=== PATIENT | male | born 1970 | race Caucasian/White ===

== ENCOUNTER 2023-05-22 13:44 | Outpatient (CLI) | payer OTHER, SELFPAY ==
--- NOTE | ~2023-05-22 | CT_ITS ---
Non-contrast CT scan of the Abdomen and Pelvis Clinical indication: Neutropenia Technique: 2.5 mm axial scans were obtained through the abdomen and pelvis without intravenous or or al contrast. Dose reduction technique was used on this scan by utilizing automated exposure control a nd iterative reconstruction technique. The dose-length product (DLP) was 401.81 mGy-cm. Findings: Images through the lung bases reveal no abnormalities. There is no evidence of renal or ureteral calculi. The kidneys and the ureters are nondilated. The liver, spleen, pancreas, gallbladder, and adrenals appear normal. There is no aortic aneurysm. There is no evidence of bowel obstruction. Images through the pelvis were performed. There is no evidence of ascites or lymphadenopathy. Questio nable urinary bladder wall thickening. No pelvic mass seen. Impression: Questionable cystitis. Correlate clinically. No other significant findings. Reviewed, dictated and finalized at [facility]. Impression: Questionable cystitis. Correlate clinically. No other significant findings.
== END 2023-05-22 13:45 ==
PROVIDERS: PCP Physician Assistant; Visit Provider Physician Assistant
DX: D70.9 Neutropenia, unspecified (principal); K52.89 Other specified noninfective gastroenteritis and colitis
CPT/HCPCS: 74176

== ENCOUNTER 2023-06-27 13:43 | Outpatient (CLI) | payer OTHER, SELFPAY ==
[2023-06-27 13:58] LABS: Basophils Percent Auto 0.9 % (0.2-1.2); Eosinophils Absolute Auto 0.1 K/mm3 (0-0.3); Eosinophils Percent Auto 1.6 % (0-4.4); Hematocrit 43.4 % (42.0-52.0); Immature Granulocyte Absolute 0.01 K/mm3 (0.00-0.031); Immature Granulocyte Percent A 0.3 % (0-0.5); Lymphocytes Absolute Auto 0.92 K/mm3 (0.9-3.2); Lymphocytes Percent Auto 28.8 % (18.3-44.2); Mean Corpuscular HGB Conc 34.6 g/dl (32-36); Mean Corpuscular Hemoglobin 31.4 pg (26-34); Mean Platelet Volume 9.2 fl (7.4-10.4); Monocytes Absolute Auto 0.3 K/mm3 (0.1-0.6); Monocytes Percent Auto 8.1 % (2.6-8.5); Neutrophils Absolute Auto 1.9 K/mm3 (1.3-6.7); Neutrophils Percent Auto 60.3 % (45.5-73.1); Platelet Count Result 177 k/mm3 (150-375); Red Blood Count 4.77 M/mm3 (4.6-6.20); Red Cell Distribution Width 12.7 % (11.5-14.5); White Blood Count 3.2 K/mm3 (4.5-10.0)
[2023-06-27 16:54] LABS: Iron 120 ug/dL (49-181)
[2023-06-27 17:03] LABS: Alanine Aminotransferase 47 U/L (6-50); Albumin Level 4.6 g/dL (3.5-5.1); Alkaline Phosphatase 46 U/L (38-126); Anion Gap 6 mmol/L (4-12); Aspartate Amino Transferase 43 U/L (17-59); Bilirubin,Total 0.8 mg/dL (0.2-1.3); Blood Urea Nitrogen 18 mg/dL (9-20); Calcium 9.6 mg/dL (8.4-10.2); Carbon Dioxide 28 mmol/L (22-30); Chloride 106 mmol/L (98-107); Estimated Glomerular Filt Rate 49; Glucose 106 mg/dL (65-110); Lactate Dehydrogenase 161 U/L (120-246); Potassium 4.3 mmol/L (3.4-5.0); Sodium 140 mmol/L (137-145)
[2023-06-27 17:05] LABS: Percent Iron Saturation 40 % (20-50)
[2023-06-27 18:13] LABS: Folic Acid 8.8 ng/mL (2.76->20)
[2023-07-01 03:28] LABS: Methylmalonic Acid 104 nmol/L (87-318)
== END 2023-06-27 13:44 | disposition home or self-care (01) ==
LOC: ANHLAB 13:45
PROVIDERS: PCP Physician Assistant; Visit Provider Internal Medicine Hematology & Oncology
DX: D72.819 Decreased white blood cell count, unspecified (principal); D64.9 Anemia, unspecified
CPT/HCPCS: 36415; 80053; 82607; 82728; 82746; 83540; 83550; 83615; 83921; 85025; 86038

== ENCOUNTER 2023-10-19 14:06 | Outpatient (CLI) | payer OTHER, SELFPAY ==
[2023-10-19 14:28] LABS: Eosinophils Absolute Auto 0.1 K/mm3 (0-0.3); Eosinophils Percent Auto 1.5 % (0-4.4); Hematocrit 45.2 % (42.0-52.0); Hemoglobin 15.6 g/dL (14.0-18.0); Immature Granulocyte Absolute 0.01 K/mm3 (0.00-0.031); Immature Granulocyte Percent A 0.2 % (0-0.5); Lymphocytes Absolute Auto 1.28 K/mm3 (0.9-3.2); Lymphocytes Percent Auto 31.9 % (18.3-44.2); Mean Corpuscular HGB Conc 34.5 g/dl (32-36); Mean Corpuscular Hemoglobin 31.1 pg (26-34); Mean Platelet Volume 9.6 fl (7.4-10.4); Monocytes Absolute Auto 0.4 K/mm3 (0.1-0.6); Neutrophils Absolute Auto 2.3 K/mm3 (1.3-6.7); Neutrophils Percent Auto 56.4 % (45.5-73.1); Platelet Count Result 188 k/mm3 (150-375); Red Blood Count 5.02 M/mm3 (4.6-6.20); Red Cell Distribution Width 13.4 % (11.5-14.5)
[2023-10-19 17:21] LABS: Albumin Level 4.3 g/dL (3.5-5.1); Anion Gap 12 mmol/L (4-12); Blood Urea Nitrogen 19 mg/dL (9-20); Carbon Dioxide 26 mmol/L (22-30); Chloride 98 mmol/L (98-107); Estimated Glomerular Filt Rate 53; Glucose 98 mg/dL (65-110); Phosphorus 3.6 mg/dL (2.5-4.5); Potassium 3.8 mmol/L (3.4-5.0); Sodium 136 mmol/L (137-145)
[2023-10-19 18:33] LABS: Folic Acid 8.5 ng/mL (2.76->20)
== END 2023-10-19 14:07 | disposition home or self-care (01) ==
LOC: ANHLAB 14:07
PROVIDERS: Internal Medicine Nephrology; PCP Family Medicine; Visit Provider Internal Medicine Hematology & Oncology
DX: N18.31 Chronic kidney disease, stage 3a (principal)
CPT/HCPCS: 36415; 80069; 82607; 82746; 85025

== ENCOUNTER 2024-01-09 13:21 | Outpatient (CLI) | payer OTHER, SELFPAY ==
[2024-01-09 14:20] LABS: Albumin Level 4.3 g/dL (3.5-5.1); Anion Gap 9 mmol/L (4-12); Blood Urea Nitrogen 17 mg/dL (9-20); Calcium 9.2 mg/dL (8.4-10.2); Carbon Dioxide 27 mmol/L (22-30); Chloride 102 mmol/L (98-107); Estimated Glomerular Filt Rate > 60; Glucose 100 mg/dL (65-110); Phosphorus 4.2 mg/dL (2.5-4.5); Potassium 3.6 mmol/L (3.4-5.0); Sodium 138 mmol/L (137-145)
[2024-01-09 14:27] LABS: Complement C3 97 mg/dL (88-165)
[2024-01-09 14:30] LABS: Parathyroid Intact 32.9 pg/mL (14.5-75.2)
[2024-01-09 14:47] LABS: Creatinine Urine 82.7 mg/dL
[2024-01-09 14:52] LABS: Total Protein Urine Random < 5 mg/dL; Ur Ttl Prot Creatinine Ratio < 0.06 mg/mg (0-0.20)
[2024-01-10 11:09] LABS: Protein, Total 6.4 g/dL (6.1-8.1)
[2024-01-11 08:54] LABS: Creatinine, Random Urine 82 mg/dL (20-320); Total Prot/Creat ratio mg/mg 0.061 (0.025-0.148); Total Protein/Creatinine Ratio 61 mg/g creat (25-148)
[2024-01-12 15:03] LABS: Anti Glomerular Basement Memb <1.0 AI
[2024-01-13 11:03] LABS: ANCA Screen NEGATIVE (NEGATIVE)
[2024-01-15 16:08] LABS: Albumin 4.2 g/dL (3.8-4.8); Alpha 1 Globulin 0.2 g/dL (0.2-0.3); Alpha 2 Globulin 0.5 g/dL (0.5-0.9); Beta 1 Globulin 0.4 g/dL (0.4-0.6); Gamma Globulin 0.8 g/dL (0.8-1.7)
== END 2024-01-09 13:22 | disposition home or self-care (01) ==
LOC: ANHLAB 13:22
PROVIDERS: PCP Family Medicine; Visit Provider Internal Medicine Nephrology
DX: N18.31 Chronic kidney disease, stage 3a (principal); E55.9 Vitamin D deficiency, unspecified; N25.81 Secondary hyperparathyroidism of renal origin
CPT/HCPCS: 36415; 80069; 82570; 83520; 83970; 84155; 84156; 84165; 84166; 86036; 86038; 86039; 86160; 86225

== ENCOUNTER 2024-04-23 12:15 | Outpatient (CLI) | payer OTHER, SELFPAY ==
--- OUTSIDE RECORDS SUMMARY | 2024-04-23 12:20 | XMS_ITS | Clinical Summary ---
Author Organization [facility] Address [address] [place] [phone] Care Team Providers Care Surveillance Manager Name Role Phone Tr Wallis MD Primary Care Provider [phone] Allergies No known active allergies Medications ibuprofen (ADVIL,MOTRIN) 200 mg tab/cap Take by mouth as needed for pain Active meloxicam (MOBIC) 15 mg tablet Take 1 tablet (15 mg total) by mouth daily with breakfast Take 1 daily with food 30 tablet 3 Active cyclobenzaprine (FLEXERIL) 10 mg tablet Take 1 tablet (10 mg total) by mouth 2 (two) times a day as needed for muscle spasms 20 tablet 3 Active Active Problems Problem Noted Date Diagnosed Date Neutropenia 10/11/2021 Neck pain of over 3 months duration 08/16/2021 Arthralgia of elbow 03/18/2010 Surgical History Surgery Date Site/Laterality Comments ARM SURGERY LASIK TONSILECTOMY, ADENOIDECTOMY, BILATERAL MYRINGOTOMY AND TUBES WISDOM TOOTH EXTRACTION Family History Medical History Relation Name Comments Cancer Maternal Grandfather Heart disease Maternal Grandmother Relation Name Status Comments Maternal Grandfather Maternal Grandmother Social History Tobacco Use Types Packs/Day Years Used Date Smoking Tobacco: Never Smokeless Tobacco: Never Tobacco Cessation:Counseling Given: Not Answered Alcohol Use Standard Drinks/Week Comments Yes 0 (1 standard drink = 0.6 oz pur e alcohol) social Personal Safety Answer Date Recorded Getting School Help Needed Not on file 05/19 Sex and Gender Information Value Date Recorded Sex Assigned at Not on file 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 Gender Identity Not on file Sexual Orientation Not on file Obstetrics History Last Filed Vital Signs Vital Sign Reading Time Taken Comments Blood Pressure 131/86 04/04/2022 5:56 PM DIESEL TRUCK MECHANIC Pulse 65 04/04/2022 5:56 PM DIESEL TRUCK MECHANIC Temperature 36.6 C (97.8 F) 04/04/2022 3:23 PM DIESEL TRUCK MECHANIC Respiratory Rate 18 04/04/2022 5:56 PM DIESEL TRUCK MECHANIC Oxygen Saturation 99% 04/04/2022 5:56 PM DIESEL TRUCK MECHANIC Inhaled Oxygen Concentration - - Weight 82.2 kg (181 lb 3.5 oz) 04/04/2022 3:23 P M DIESEL TRUCK MECHANIC Height 177.8 cm (5' 10 ) 04/04/2022 3:23 PM DIESEL TRUCK MECHANIC Body Mass Index 26 04/04/2022 3:23 PM DIESEL TRUCK MECHANIC Plan of Treatment Health Maintenance Due Date Last Done Comments Colon Cancer Screening-Colonoscopy 1972 Depression Screening 1972 Hepatitis C Screening 1972 Prostate Cancer Screening-PSA 1972 DTaP/Tdap/Td Vaccine (1 - Tdap) 05/09/1983 Hepatitis B Screening 1990 Regular Well Visit/Exam 18-64 1990 Zoster Vaccine (1 of 2) 2022 Influenza Vaccine (#1) 2023 Pneumococcal vaccine <65 Aged Out No longer eligible based on patient's age to complete this topic Insurance [place] [address] [facility] OTHER [facility] * Guarantor: ROBE[employer]MRA Account Type Relation to Patient Date of Phone Billing Address Personal/Family Unverified Proxy [address] [place] [phone] [facility] CHO[facility] PLUS [employer] COMPENSATION GENERIC Care Teams Surveillance Manager Relationship Specialty Start Date End Date Tr Wallis MD [address] [place] [id number] PCP - General Family Medicine 02/05/19
--- OUTSIDE RECORDS SUMMARY | 2024-04-23 12:20 | XMS_ITS | Referral Summary ---
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 Gender Identity Not on file Sexual Orientation Not on file Last Filed Vital Signs Vital Sign Reading Time Taken Comments Blood Pressure 131/86 04/04/2022 5:56 PM FOOT ROENTGENOLOGIST Pulse 65 04/04/2022 5:56 PM FOOT ROENTGENOLOGIST Temperature 36.6 C (97.8 F) 04/04/2022 3:23 PM FOOT ROENTGENOLOGIST Respiratory Rate 18 04/04/2022 5:56 PM FOOT ROENTGENOLOGIST Oxygen Saturation 99% 04/04/2022 5:56 PM FOOT ROENTGENOLOGIST Inhaled Oxygen Concentration - - Weight 82.2 kg (181 lb 3.5 oz) 04/04/2022 3:23 P M FOOT ROENTGENOLOGIST Height 177.8 cm (5' 10 ) 04/04/2022 3:23 PM FOOT ROENTGENOLOGIST Body Mass Index 26 04/04/2022 3:23 PM FOOT ROENTGENOLOGIST Plan of Treatment Not on file Insurance [facility] CHO[facility] PLUS [facility] OTHER [facility] PLUS [facility] * Guarantor: ROBE NAGEL Account Type Relation to Patient Date of Phone Billing Address Personal/Family Unverified Proxy [address] [place] [phone] [facility] CHOICE PLUS MRA [facility] CHOICE PLUS WORK[employer] COMPENSATION GENERIC Care Teams Semiconductor Testing Group Leader Relationship Specialty Start Date End Date Tr Wallis MD [address] [place] [id number] PCP - General Family Medicine 02/05/19
--- OUTSIDE RECORDS SUMMARY | 2024-04-23 12:20 | XMS_ITS | Clinical Summary ---
Author Organization [facility] Address [address] [place] [address] Care Team Providers Care Roadway Designer Name Role Phone Joseph Hernandez MD Primary Care Prov ider Allergies No known active allergies Encounters Date Type Department Care Team Description 04/18/2024 3:53 PM COMPENSATION INTERN - 04/18/2024 11:59 PM [facility] Hospital Encounter [facility] [address] [place] [address] Yohannes Meraz MD Discharge Disposition: Home or Self Care (Routine Discharge) 04/18/2024 Travel from Last 3 Months Family History Medical History Relation Comments Cancer Maternal Grandfather Lung cancer Stroke Maternal Grandmother Stroke Cancer Maternal Uncle Pancreatic cance r Cancer Mother Colon Cancer in remission Cancer Paternal Grandfather Cancer Relation Status Comments Maternal Grandfather Maternal Grandmother Maternal Uncle Mother Paternal Grandfather Social History Tobacco Use Types Packs/Day Years Used Date Smoking Tobacco: Never Passive Smoke Exposure: Never Smokeless Tobacco: Never Tobacco Cessation:Counseling Given: No Alcohol Use Standard Drinks/Week Comments Yes 23.3 (1 standard drink = 0.6 oz pure alcohol) PHQ-2 Answer Date Recorded Patient Health Questionnaire-2 Score 0 11/08/2023 Sex and Gender Information Value Date Recorded Sex Assigned at Not on file Legal Sex Male 8:25 PM CDT Gender Identity Not on file Sexual Orientation Not on file Travel History Travel Start Travel End [place] 04/18/2024 04/18/2024 [place] 04/13/2024 04/15/2024 [place] 03/29/2024 03/31/2024 Last Filed Vital Signs Vital Sign Reading Time Taken Comments Blood Pressure 122/70 11/08/2023 8:19 AM CDT Pulse 61 11/08/2023 8:19 AM CDT Temperature 36.6 C (97.8 F) 11/08/2023 8:19 AM CDT Respiratory Rate 18 11/08/2023 8:19 AM CDT Oxygen Saturation 96% 11/08/2023 8:19 AM CDT Inhaled Oxygen Concentration - - Weight 82.9 kg (182 lb 12.8 oz) 11/08/2023 8:19 AM CDT Height 177.8 cm (5' 10 ) 11/08/2023 8:19 AM CDT Body Mass Index 26.23 11/08/2023 8:19 AM CDT Plan of Treatment Health Maintenance Due Date Last Done Comments Hepatitis C 1990 DTaP, Tdap and Td Vaccines ( 1 - Tdap) 05/09/1991 Hepatitis B Vaccines (1 of 3 - 19+ 3-dose series) 05/09/1991 Zoster Vaccines (1 of 2) 2022 COVID-19 Vaccine (1 - 2023-2 5 season) 2023 Influenza Adult (#1) 2023 PHQ-2 (Physician [place]) 03/06/2024 11/08/2023 Annual Physical 11/07/2024 11/08/2023 Colorectal Cancer Screening Colonoscopy (10 Years) 03/13/2033 03/13/2023, 02/21/2022, 02/21/2022 Meningococcal B Vaccine Aged Out No l onger eligible based on patient's age to complete this topic Meningococcal Vaccine Aged Out No nicola carlene eligible based on patient's age to complete this topic Pneumococcal Vaccine: Pediatrics (0 to 5 Years) and At-Risk Patients (6 to 64 Years) Aged Out No longer eligible b ased on patient's age to complete this topic RSV Immunizations Under 20 Months Aged Out No longer eligible b ased on patient's age to complete this topic Procedures Procedure Name Priority Date/Time Associated Diagnosis Comments CT ABD+PEL WO CON Routine 04/18/2024 4:0 3 PM COMPENSATION INTERN Chronic prostatitis COLONOSCOPY GENERIC (SCAN ORDER) 03/13/2023 from Last 3 Months or Most Recently Relevant to Health Maintenance Results * CT ABD+PEL WO CON (04/18/2024 4:03 PM COMPENSATION INTERN) Anatomical Region Laterality Modality Abdomen Computed Tomogra phy 04/22/2024 8:48 PM COMPENSATION INTERN Impressions 04/22/2024 8:56 PM COMPENSATION INTERN IMPRESSION: 1. Mild prostatomegaly. Complete evaluation of the prostate is limited on this noncontrast CT. 2. No lymphadenopathy is seen within the abdomen or pelvis. 3. Moderate fecal burden is seen within the colon, which can be seen with constipation. 4. There is a 4.5 mm right lower lobe pulmonary nodule. If there is clinical concern for primary lung cancer, a follow-up CT in 12 months is recommended for further evaluation. Otherwise, no imaging follow-up is needed. Ordered By: YOHANNES MERAZ Interpreted By: Fartun Latif MD, 04/22/2024 8:48 PM Narrative 04/22/2024 8:56 [place] [id number] PROCEDURE: CT ABD+PEL WO CON HISTORY: Chronic prostatitis. Left lower quadrant pain. TECHNIQUE: Helical CT of the abdomen and pelvis was performed without intravenous contrast. A dose lowering technique was used for this procedure, which may include, but is not limited to, dose reduction technique, automated exposure control, the use of iterative reconstruction, and ALARA (As Low As Reasonably Achievable) / Image Gently techniques. COMPARISON: None. FINDINGS CT ABDOMEN/PELVIS: Lower thorax: There is a 4.5 mm right lower lobe pulmonary nodule. There is a calcified granuloma within the right lower lobe. Minimal bilateral dependent atelectasis. The heart is normal in size. The distal esophagus is unremarkable. Liver: The liver is normal in size. No intrahepatic mass is seen on this non- contrast exam. Biliary tree: The gallbladder is present. There is no biliary ductal dilatation. Spleen: The spleen is normal in size. Calcifications are seen in the spleen, consistent with old granulomatous disease. Pancreas: The pancreas is normal in size. There are no pancreatic calcifications. The pancreatic duct is not dilated. Adrenal glands: Unremarkable. Kidneys: There is no hydronephrosis. No renal stones are seen. No ureteric stones identified. Lymph nodes: Abdomen: There is no abdominal adenopathy. Pelvis: There is no pelvic adenopathy. Vasculature: The aorta is normal caliber. Peritoneum/mesentery/omentum: There is no free fluid or free air. GI tract: There is no bowel obstruction. The appendix normal. Moderate fecal burden within the colon. There is no abnormal bowel wall thickening to suggest acute inflammation. Pelvic urogenital structures:The bladder is grossly unremarkable. Mild enlarged measuring up to 5.0 cm in the transverse dimension. Body wall: There are degenerative changes in the spine. No aggressive osseous lesions identified. Limitations: Evaluation of the solid parenchymal organs and vasculature is limited due to lack of intravenous contrast. Conroy: (S/I) = series number / image number Procedure Note Fartun Latif MD - 04/22/[address] [address] PROCEDURE: CT ABD+PEL WO CON HISTORY: Chronic prostatitis. Left lower quadrant pain. TECHNIQUE: Helical CT of the abdomen and pelvis was performed withoutintravenous contrast. A dose lowering technique was used for this procedure, which may include,but is not limited to, dose reduction technique, automated exposurecontrol, the use of iterative reconstruction, and ALARA (As Low AsReasonably Achievable) / Image Gently techniques. COMPARISON: None. FINDINGS CT ABDOMEN/PELVIS: Lower thorax: There is a 4.5 mm right lower lobe pulmonary nodule. Thereis a calcified granuloma within the right lower lobe. Minimal bilateraldependent atelectasis. The heart is normal in size. The distal esophagusis unremarkable. Liver: The liver is normal in size. No intrahepatic mass is seen on thisnon- contrast exam. Biliary tree: The gallbladder is present. There is no biliary ductaldilatation. Spleen: The spleen is normal in size. Calcifications are seen in thespleen, consistent with old granulomatous disease. Pancreas: The pancreas is normal in size. There are no pancreaticcalcifications. The pancreatic duct is not dilated. Adrenal glands: Unremarkable. Kidneys: There is no hydronephrosis. No renal stones are seen. Noureteric stones identified. Lymph nodes: Abdomen: There is no abdominal adenopathy. Pelvis: There is no pelvic adenopathy. Vasculature: The aorta is normal caliber. Peritoneum/mesentery/omentum: There is no free fluid or free air. GI tract: There is no bowel obstruction. The appendix normal. Moderatefecal burden within the colon. There is no abnormal bowel wall thickeningto suggest acute inflammation. Pelvic urogenital structures:The bladder is grossly unremarkable. Mildenlarged measuring up to 5.0 cm in the transverse dimension. Body wall: There are degenerative changes in the spine. No aggressiveosseous lesions identified. Limitations: Evaluation of the solid parenchymal organs and vasculature islimited due to lack of intravenous contrast. Conroy: (S/I) = series number / image number IMPRESSION: 1. Mild prostatomegaly. Complete evaluation of the prostate is limited onthis noncontrast CT. 2. No lymphadenopathy is seen within the abdomen or pelvis. 3. Moderate fecal burden is seen within the colon, which can be seen withconstipation. 4. There is a 4.5 mm right lower lobe pulmonary nodule. If there isclinical concern for primary lung cancer, a follow-up CT in 12 months isrecommended for further evaluation. Otherwise, no imaging follow-up isneeded. Ordered By: YOHANNES MERAZ Interpreted By: Fartun Latif MD, 04/22/2024 8:48 PM Yohannes Meraz MD CT Final Result * COLONOSCOPY GENERIC (SCAN ORDER) (03/13/2023) 03/13/2023 [facility] Scanned SCANNING Final Resu lt from Last 3 Months or Most Recently Relevant to Health Maintenance Insurance [facility] Care Teams Roadway Designer Relationship Specialty Start Date End Date Chantal VII, Joseph Aguilar MD [address] [place], [place] [address] PCP - General FAMILY PRACTICE 11/08/23
[2024-04-23 12:27] LABS: Basophils Percent Auto 1.1 % (0.2-1.2); Eosinophils Absolute Auto 0.1 K/mm3 (0-0.3); Eosinophils Percent Auto 1.6 % (0-4.4); Hematocrit 45.1 % (42.0-52.0); Hemoglobin 15.6 g/dL (14.0-18.0); Immature Granulocyte Absolute 0.01 K/mm3 (0.00-0.031); Immature Granulocyte Percent A 0.3 % (0-0.5); Lymphocytes Absolute Auto 0.76 K/mm3 (0.9-3.2); Lymphocytes Percent Auto 20.5 % (18.3-44.2); Mean Corpuscular HGB Conc 34.6 g/dl (32-36); Mean Corpuscular Hemoglobin 31.1 pg (26-34); Mean Corpuscular Volume 89.8 fl (80-100); Mean Platelet Volume 9.7 fl (7.4-10.4); Monocytes Absolute Auto 0.3 K/mm3 (0.1-0.6); Monocytes Percent Auto 8.4 % (2.6-8.5); Neutrophils Absolute Auto 2.5 K/mm3 (1.3-6.7); Neutrophils Percent Auto 68.1 % (45.5-73.1); Platelet Count Result 183 k/mm3 (150-375); Red Blood Count 5.02 M/mm3 (4.6-6.20); White Blood Count 3.7 K/mm3 (4.5-10.0)
[2024-04-23 14:04] LABS: Anion Gap 12 mmol/L (4-12); Blood Urea Nitrogen 16 mg/dL (9-20); Calcium 9.3 mg/dL (8.4-10.2); Carbon Dioxide 28 mmol/L (22-30); Chloride 101 mmol/L (98-107); Estimated Glomerular Filt Rate 57; Glucose 93 mg/dL (65-110); Sodium 141 mmol/L (137-145)
[2024-04-23 15:11] LABS: Folic Acid 7.7 ng/mL (2.76->20)
== END 2024-04-23 12:16 | disposition home or self-care (01) ==
LOC: ANHLAB 12:17
PROVIDERS: Visit Provider Internal Medicine Hematology & Oncology
DX: D72.819 Decreased white blood cell count, unspecified (principal)
CPT/HCPCS: 36415; 80048; 82607; 82746; 85025

== ENCOUNTER 2024-08-08 14:10 | Outpatient (CLI) | payer OTHER, SELFPAY ==
--- OUTSIDE RECORDS SUMMARY | 2024-08-08 14:55 | XMS_ITS | Referral Summary ---
Author Organization [facility] Address [address] [place] [phone] Care Team Providers Care Rn Delivery Name Role Phone Tr Wallis MD Primary Care Provider [phone] Allergies No known active allergies Medications ibuprofen [...] on file Legal Sex Male 3:25 AM TEXTILE COLORIST FORMULATOR Gender Identity Not on file Sexual Orientation Not on file Last Filed Vital Signs Vital Sign Reading Time Taken Comments Blood Pressure 131/86 04/04/2022 5:56 PM TEXTILE COLORIST FORMULATOR Pulse 65 04/04/2022 5:56 PM TEXTILE COLORIST FORMULATOR Temperature 36.6 C (97.8 F) 04/04/2022 3:23 PM TEXTILE COLORIST FORMULATOR Respiratory Rate 18 04/04/2022 5:56 PM TEXTILE COLORIST FORMULATOR Oxygen Saturation 99% 04/04/2022 5:56 PM TEXTILE COLORIST FORMULATOR Inhaled Oxygen Concentration - - Weight 82.2 kg (181 lb 3.5 oz) 04/04/2022 3:23 P M TEXTILE COLORIST FORMULATOR Height 177.8 cm (5' 10) 04/04/2022 3:23 PM TEXTILE COLORIST FORMULATOR Body Mass Index 26 04/04/2022 3:23 PM TEXTILE COLORIST FORMULATOR Plan of Treatment Not on file Insurance [facility] CHOICE PLUS [facility] C[facility] OTHER [facility] CHOICE PLUS [facility] CHOICE PLUS * Guarantor: ROBE NAGEL Account Type Relation to Patient Date of Phone Billing Address Personal/Family Unverified Proxy [address] [place] [phone] [facility] CHOICE PLUS MRA [facility] CHOICE PLUS WORK[employer] COMPENSATION GENERIC Care Teams Rn Delivery Relationship Specialty Start Date End Date Tr Wallis MD [address] [place] [id number] PCP - General Family Medicine 02/05/19
--- OUTSIDE RECORDS SUMMARY | 2024-08-08 14:55 | XMS_ITS | Clinical Summary ---
[facility] Address [address] [place] [address] Care Team Providers Care Radio Interference Supervisor Name Role Phone Jonel Cornejo MD Primary Care Provider Allergies No known active allergies Medications No known medications Active Problems No known active problems Encounters Date Type Department Care Team Description 07/25/2024 External Device Data STL ABSTRACTION Provider, Abstract 07/24/2024 External Device Data STL ABSTRACTION Provider, Abstract 07/23/2024 External Device Data STL ABSTRACTION Provider, Abstract 06/18/2024 External Device Data STL ABSTRACTION Provider, Abstract 05/11/2024 External Device Data STL ABSTRACTION Provider, Abstract 05/10/2024 External Device Data STL ABSTRACTION Provider, Abstract from Last 3 Months Family History Medical History Relation Name Comments Colon Cancer Mother Relation Name Status Comments Daughter Alive Father Alive Mother Alive Sister 1 Alive Sister 2 Alive Son Alive Social History Tobacco Use Types Packs/Day Years Used Date Smoking Tobacco: Never Smokeless Tobacco: Never Tobacco Cessation:Counseling Given: Not Answered Alcohol Use Standard Drinks/Week Comments Yes 12 (1 standard drink = 0.6 oz pu re alcohol) Sex and Gender Information Value Date Recorded Sex Assigned at Not on file Legal Sex Male 3:12 PM CDT Gender Identity Not on file Sexual Orientation Not on file Last Filed Vital Signs Vital Sign Reading Time Taken Comments Blood Pressure 117/76 04/25/2024 10:08 AM CORPORATE PHYSICAL SECURITY SUPERVISOR Pulse 62 04/25/2024 10:06 AM CORPORATE PHYSICAL SECURITY SUPERVISOR Temperature 36.2 C (97.1 F) 04/25/2024 10:06 AM CORPORATE PHYSICAL SECURITY SUPERVISOR Respiratory Rate 16 04/25/2024 10:0 6 AM CORPORATE PHYSICAL SECURITY SUPERVISOR Oxygen Saturation 98% 04/25/2024 10: 06 AM CORPORATE PHYSICAL SECURITY SUPERVISOR Inhaled Oxygen Concentration - - Weight 85.2 kg (187 lb 12.8 oz) 025 10:06 AM CORPORATE PHYSICAL SECURITY SUPERVISOR Height 177.8 cm (5' 10) 06/27/2023 1:05 PM CDT Body Mass Index 26.95 06/27/2023 1:05 PM CDT Plan of Treatment Upcoming Encounters Date Type Department Care Team (Late st Contact Info) Description 12/24/2024 10:00 AM CDT Office Visit [facility]3] Oncology and Hematology - Philip [address] [facility] [address] [place] [address] Cj Blas MD [address] [facility] [address] [place] [address] Health Maintenance Due Date Last Done Comments Pre-Diabetes and Diabetes Screening 1972 DTAP/TDAP/TD VACCINES (1 - Tdap) 05/09/1991 HEPATITIS B VACCINES (1 of 3 - 19+ 3-dose series) 07/1991 FIT-DNA Q 3 years 2017 FIT/FOBT Q 1 year 2017 Flex Sig/CT Colonography Q 5 years 2017 ZOSTER VACCINE (1 of 2) 2022 INFLUENZA VACCINE (#1) 2023 COLORECTAL SCREENING 03/13/2033 03/13/2023 Colorectal Cancer Screening 03/13/2033 Insurance [facility] CHOICE [id number] Care Teams Radio Interference Supervisor Relationship Specialty Start Date End Date Jonel Cornejo MD [address] [facility] [address] [place] [phone] PCP - General Family Practice 04/25/24
--- OUTSIDE RECORDS SUMMARY | 2024-08-08 14:55 | XMS_ITS | Clinical Summary ---
Author Organization [facility] Address [address] [place] [phone] Care Team Providers Care Industrial Gas Servicer Supervisor Name Role Phone Tr Wallis MD Primary Care Provider [phone] Allergies No known active allergies Medications ibuprofen [...] on file Legal Sex Male 3:25 AM INTERACTIVE DESIGNER Gender Identity Not on file Sexual Orientation Not on file Obstetrics History Last Filed Vital Signs Vital Sign Reading Time Taken Comments Blood Pressure 131/86 04/04/2022 5:56 PM INTERACTIVE DESIGNER Pulse 65 04/04/2022 5:56 PM INTERACTIVE DESIGNER Temperature 36.6 C (97.8 F) 04/04/2022 3:23 PM INTERACTIVE DESIGNER Respiratory Rate 18 04/04/2022 5:56 PM INTERACTIVE DESIGNER Oxygen Saturation 99% 04/04/2022 5:56 PM INTERACTIVE DESIGNER Inhaled Oxygen Concentration - - Weight 82.2 kg (181 lb 3.5 oz) 04/04/2022 3:23 P M INTERACTIVE DESIGNER Height 177.8 cm (5' 10) 04/04/2022 3:23 PM INTERACTIVE DESIGNER Body Mass Index 26 04/04/2022 3:23 PM INTERACTIVE DESIGNER Plan of Treatment Health Maintenance Due Date Last Done Comments Colon Cancer Screening-Colonoscopy 1972 Depression Screening 1972 Hepatitis C Screening 1972 Prostate Cancer Screening-PSA 1972 DTaP/Tdap/Td Vaccine (1 - Tdap) 05/09/1983 Hepatitis B Screening 1990 Regular Well Visit/Exam 18-64 1990 Zoster Vaccine (1 of 2) 2022 Influenza Vaccine (Season Ended) 2024 Pneumococcal vaccine <65 Aged Out No longer eligible based on patient's age to complete this topic Insurance [facility] CHOICE PLUS [facility] Address: [facility] [address] [place] [address] [facility] CARE OTHER [facility] CHOICE PLUS [facility] HMO/PPO Address: [address] [address] [place] [address] [facility] CHOICE PLUS [facility] HMO/PPO Address: [address] [address] [place] [address] * Guarantor: ROBE,MRA Account Type Relation to Patient Date of Phone Billing Address Personal/Family Unverified Proxy [address] [place] [phone] [facility] CHOICE PLUS [facility] HMO/PPO Address: [address] [place] [address] MRA CHOICE PLUS [facility] HMO/PPO Address: [place] [address] WORKERS COMPENSATION GENERIC Care Teams Industrial Gas Servicer Supervisor Relationship Specialty Start Date End Date Tr Wallis MD [address] [place] [phone] PCP - General Family Medicine 02/05/19
[2024-08-08 18:43] LABS: Albumin Level 4.5 g/dL (3.5-5.1); Anion Gap 9 mmol/L (4-12); Blood Urea Nitrogen 20 mg/dL (9-20); Calcium 9.5 mg/dL (8.4-10.2); Carbon Dioxide 27 mmol/L (22-30); Chloride 101 mmol/L (98-107); Estimated Glomerular Filt Rate 55; Glucose 123 mg/dL (65-110); Phosphorus 3.9 mg/dL (2.5-4.5); Potassium 3.7 mmol/L (3.4-5.0); Sodium 137 mmol/L (137-145); Vitamin D 25 Hydroxy 19.3 ng/mL
[2024-08-08 18:54] LABS: Creatinine Urine 75.4 mg/dL; Total Protein Urine Random 6 mg/dL; Ur Ttl Prot Creatinine Ratio 0.08 mg/mg (0-0.20)
== END 2024-08-08 14:11 | disposition home or self-care (01) ==
LOC: ANHLAB 14:12
PROVIDERS: PCP Family Medicine; Visit Provider Internal Medicine Nephrology
DX: N18.31 Chronic kidney disease, stage 3a (principal); N25.81 Secondary hyperparathyroidism of renal origin; E55.9 Vitamin D deficiency, unspecified
CPT/HCPCS: 36415; 80069; 82306; 82570; 84156

== ENCOUNTER 2025-02-12 14:09 | Outpatient (CLI) | payer OTHER, SELFPAY ==
[2025-02-12 15:10] LABS: Albumin Level 4.4 g/dL (3.5-5.1); Anion Gap 5 mmol/L (4-12); Blood Urea Nitrogen 18 mg/dL (9-20); Calcium 9.2 mg/dL (8.4-10.2); Carbon Dioxide 27 mmol/L (22-30); Chloride 105 mmol/L (98-107); Estimated Glomerular Filt Rate 56; Glucose 110 mg/dL (65-110); Potassium 4.0 mmol/L (3.4-5.0); Sodium 137 mmol/L (137-145)
[2025-02-12 15:59] LABS: Total Protein Urine Random < 5 mg/dL; Ur Ttl Prot Creatinine Ratio < 0.06 mg/mg (0-0.20)
--- OUTSIDE RECORDS SUMMARY | 2025-02-12 18:51 | XMS_ITS | Clinical Summary ---
[facility] Address [address] [place] [address] Care Team Providers Care Sterile Preparation Technician Name Role Phone Jonel Cornejo MD Primary Care Provider Allergies No known active allergies Medications No known medications Active Problems No known active problems Encounters Date Type Department Care Team Description 02/11/2025 External Device Data [facility] ABSTRACTION Provider, Abstract 01/01/2025 External Device Data [facility] ABSTRACTION Provider, Abstract 01/01/2025 External Device Data [facility] ABSTRACTION Provider, Abstract 12/20/2024 Telephone [facility] Oncology and Hematology - Philip [address] [facility] [address] [place] [address] Cj Blas MD labs for appt 11/20/2024 External Device Data [facility] ABSTRACTION Provider, Abstract [...] Comments Blood Pressure 117/76 04/25/2024 10:08 AM ELECTRICAL CONTROLS ENGINEER Pulse 62 04/25/2024 10:06 AM ELECTRICAL CONTROLS ENGINEER Temperature 36.2 C (97.1 F) 04/25/2024 10:06 AM ELECTRICAL CONTROLS ENGINEER Respiratory Rate 16 04/25/2024 10:0 6 AM ELECTRICAL CONTROLS ENGINEER Oxygen Saturation 98% 04/25/2024 10: 06 AM ELECTRICAL CONTROLS ENGINEER Inhaled Oxygen Concentration - - Weight 85.2 kg (187 lb 12.8 oz) 025 10:06 AM ELECTRICAL CONTROLS ENGINEER Height 177.8 cm (5' 10) 06/27/2023 1: 05 PM CDT Body Mass Index 26.95 06/27/2023 1:05 PM CDT Plan of Treatment Upcoming Encounters Date Type Department Care Team (Late st Contact Info) Description 04/22/2025 1:15 PM ELECTRICAL CONTROLS ENGINEER Office Visit [facility] Oncology and Hematology - Philip [address] [facility] [address] [place] [address] Cj Blas MD [address] [facility] [address] [place] [address] Health Maintenance Due Date Last Done Comments Pre-Diabetes and Diabetes Screening 1972 DTAP/TDAP/TD VACCINES (1 - Tdap) 05/09/1991 HEPATITIS B VACCINES (1 of 3 - 19+ 3-dose series) 07/1991 FIT-DNA Q 3 years 2017 FIT/FOBT Q 1 year 2017 Flex Sig/CT Colonography Q 5 years 2017 ZOSTER VACCINE (1 of 2) 2022 INFLUENZA VACCINE (#1) 2024 COLORECTAL SCREENING 03/13/2033 03/13/2023 Colorectal Cancer Screening 03/13/2033 Insurance [facility] CHOICE [id number] Care Teams Sterile Preparation Technician Relationship Specialty Start Date End Date Jonel Cornejo MD [address] [facility] [address] [place], [place] [phone] PCP - General Family Practice 04/25/24
--- OUTSIDE RECORDS SUMMARY | 2025-02-12 18:51 | XMS_ITS | Clinical Summary ---
Author Organization [facility] Address [address] [place] [phone] Care Team Providers Care Director Of Catering Name Role Phone Tr Wallis MD Primary Care Provider [phone] Allergies No known active allergies Medications ibuprofen [...] on file Legal Sex Male 3:25 AM CLERK CHECKER Gender Identity Not on file Sexual Orientation Not on file Last Filed Vital Signs Vital Sign Reading Time Taken Comments Blood Pressure 131/86 04/04/2022 5:56 PM CLERK CHECKER Pulse 65 04/04/2022 5:56 PM CLERK CHECKER Temperature 36.6 C (97.8 F) 04/04/2022 3:23 PM CLERK CHECKER Respiratory Rate 18 04/04/2022 5:56 PM CLERK CHECKER Oxygen Saturation 99% 04/04/2022 5:56 PM CLERK CHECKER Inhaled Oxygen Concentration - - Weight 82.2 kg (181 lb 3.5 oz) 04/04/2022 3:23 P M CLERK CHECKER Height 177.8 cm (5' 10) 04/04/2022 3:23 PM CLERK CHECKER Body Mass Index 26 04/04/2022 3:23 PM CLERK CHECKER Plan of Treatment Health Maintenance Due Date Last Done Comments Colon Cancer Screening-Colonoscopy 1972 Depression Screening 1972 Hepatitis C Screening 1972 Prostate Cancer Screening-PSA 1972 DTaP/Tdap/Td Vaccine (1 - Tdap) 05/09/1983 Hepatitis B Screening 1990 Regular Well Visit/Exam 18-64 1990 Zoster Vaccine (1 of 2) 2022 Influenza Vaccine (#1) 2024 Pneumococcal vaccine <65 Aged Out No longer eligible based on patient's age to complete this topic Insurance [facility] CHOICE PLUS [facility] C[facility] OTHER [facility] CHOICE PLUS [facility] CHOICE PLUS [place] [id number] * Guarantor: MRA,MRA Account Type Relation to Patient Date of Phone Billing Address Personal/Family Unverified Proxy [address] [place] [phone] [facility] CHOICE PLUS [employer] CHOICE PLUS [employer] COMPENSATION GENERIC Care Teams Director Of Catering Relationship Specialty Start Date End Date Tr Wallis MD [address] [place] [id number] PCP - General Family Medicine 02/05/19
--- OUTSIDE RECORDS SUMMARY | 2025-02-12 18:51 | XMS_ITS | Clinical Summary ---
Author Organization [facility] Address [address] [place] [id number] Care Team Providers Care Parcel Post Carrier Name Role Phone Joseph Hernandez MD Primary Care Prov ider Allergies No known active allergies Family History Medical History Relation Comments Cancer [...] Date Recorded Patient Health Questionnaire-2 Score 0 04/24/2024 Sex and Gender Information Value Date Recorded Sex Assigned at Not on file Legal Sex Male 8:25 PM CDT Gender Identity Not on file Sexual Orientation Not on file Last Filed Vital Signs Vital Sign Reading Time Taken Comments Blood Pressure 122/60 04/24/2024 10:57 AM MACHINE HEEL SEAT LASTER Pulse 65 04/24/2024 10:57 AM MACHINE HEEL SEAT LASTER Temperature 36.8 C (98.2 F) 04/24/2024 10:57 AM MACHINE HEEL SEAT LASTER Respiratory Rate 18 04/24/2024 10:57 AM MACHINE HEEL SEAT LASTER Oxygen Saturation 98% 04/24/2024 10:57 AM MACHINE HEEL SEAT LASTER Inhaled Oxygen Concentration - - Weight 87.2 kg (192 lb 3.2 oz) 04/24/2024 10:57 AM MACHINE HEEL SEAT LASTER Height 177.8 cm (5' 10) 04/24/2024 10:57 AM MACHINE HEEL SEAT LASTER Body Mass Index 27.58 04/24/2024 10:57 AM MACHINE HEEL SEAT LASTER Plan of Treatment Health Maintenance Due Date Last Done Comments Hepatitis C 1990 DTaP, Tdap and Td Vaccines ( 1 - Tdap) 05/09/1991 Hepatitis B Vaccines (1 of 3 - 19+ 3-dose series) 05/09/1991 Pneumococcal Vaccine: 50+ Years (1 of 1 - PCV) 2022 Zoster Vaccines (1 of 2) 2022 COVID-19 Vaccine (1 - 2024-2 6 season) 2024 Annual Physical 11/07/2024 11/08/2023 Influenza Adult (#1) 2024 Colorectal Cancer Screening Colonoscopy (10 Years) 03/13/2033 03/13/2023, 02/21/2022, 02/21/2022 PHQ-2 (Physician [place]) Completed 04/24/2024 Hepatitis A Vaccines Aged Out No long er eligible based on patient's age to complete this topic Meningococcal B Vaccine Aged Out No l onger eligible based on patient's age to complete this topic Meningococcal Vaccine Aged Out No nicola carlene eligible based on patient's age to complete this topic RSV Immunizations Under 20 Months Aged Out No longer eligible b ased on patient's age to complete this topic Procedures Procedure Name Priority Date/Time Associated Diagnosis Comments COLONOSCOPY GENERIC (SCAN ORDER) 03/13/2023 from Last 3 Months or Most Recently Relevant to Health Maintenance Results * COLONOSCOPY GENERIC (SCAN ORDER) (03/13/2023) 03/13/2023 [facility] Scanned SCANNING Final Resu lt from Last 3 Months or Most Recently Relevant to Health Maintenance Insurance R Care Teams Parcel Post Carrier Relationship Specialty Start Date End Date Chantal VII, Joseph Aguilar MD [address] [place] [phone] PCP - General FAMILY PRACTICE 11/08/23
--- OUTSIDE RECORDS SUMMARY | 2025-02-12 18:51 | XMS_ITS | Encounter Summary ---
Author Organization [facility] Address [address] [place] [address] Care Team Providers Care Draw Operator Name Role Phone Jonel Cornejo MD Primary Care Provider Encounter Details Date Type Department Care Team (Late st Contact Info) Description 02/11/2025 External Device Data [facility] ABSTRACTION Provider, Abstract NO ADDRESS ON FILE Social History Tobacco Use Types Packs/Day Years Used Date Smoking Tobacco: Never Smokeless Tobacco: Never Alcohol Use Standard Drinks/Week Comments Yes 12 (1 standard drink = 0.6 oz pu re alcohol) Sex and Gender Information Value Date Recorded Sex Assigned at Not on file Legal Sex Male 3:12 PM CDT Gender Identity Not on file Sexual Orientation Not on file documented as of this encounter Plan of Treatment Upcoming Encounters Date Type Department Care Team (Late st Contact Info) Description 04/22/2025 1:15 PM IT RECRUITER Office Visit [facility] Oncology and Hematology - Philip [address] [facility] [address] [place] [address] Cj Blas MD [address] [facility] [address] [place] [address] documented as of this encounter Visit Diagnoses Not on filedocumented in this encounter Care Teams Draw Operator Relationship Specialty Start Date End Date Jonel Cornejo MD [address] [facility] [address] [place] [address] PCP - General Family Practice 04/25/24 documented as of this encounter
== END 2025-02-12 14:10 | disposition home or self-care (01) ==
LOC: ANHLAB 14:11
PROVIDERS: Visit Provider Internal Medicine Nephrology
DX: N18.31 Chronic kidney disease, stage 3a (principal); E55.9 Vitamin D deficiency, unspecified
CPT/HCPCS: 36415; 80069; 82306; 82570; 84156